=== PATIENT | male | born 1985 | race Caucasian/White ===

== ENCOUNTER 2019-12-14 00:38 | Emergency (ER) | payer OTHER ==
[2019-12-14 01:37] LABS: HIV (1/2) Antibody/Antigen Non-Reactive (NonReactive); HIV 1/2 INDEX 0.11 S/CO (<1.00); Hep C IgG Ab Non-Reactive (NonReactive); Hep C Index 0.18 S/CO (0-0.79)
[2019-12-14 01:39] LABS: HBSAB Concentration 442.67 mIU/mL; Hep B Surf AB Reactive (NonReactive)
== END 2019-12-14 01:00 | disposition home or self-care (01) ==
LOC: ERS 00:38
DX: Z77.21 Contact with and (suspected) exposure to potentially hazardous body fluids (principal); S61.237A Puncture wound without foreign body of left little finger without damage to nail, initial encounter; W46.1XXA Contact with contaminated hypodermic needle, initial encounter
CPT/HCPCS: 36415; 86706; 86803; 87389; 99283